=== PATIENT | female | born 1970 | race African-American/Black ===

== ENCOUNTER 2021-05-23 01:59 | Emergency (ER) | payer OTHER ==
[~2021-05-23] VITALS: Ht 167.6 cm; Wt 90.0 kg
[2021-05-23 02:15] VITALS: BP 168/80
== END 2021-05-23 06:30 | disposition home or self-care (01) ==
LOC: EDUNIT# 01:59 → EDBD 01:59 → ER 01:59
DX: R45.1 Restlessness and agitation (principal); R45.6 Violent behavior
CPT/HCPCS: 99283

== ENCOUNTER 2021-05-23 01:59 | Emergency (ER) | payer OTHER | END 2021-05-23 10:22 | disposition left against medical advice (07) | LOC: ER 01:59 | DX: Z53.21 Procedure and treatment not carried out due to patient leaving prior to being seen by health care provider (principal) ==

== ENCOUNTER 2021-12-14 09:02 | Emergency (ER) | payer MEDICAID, OTHER ==
[~2021-12-14] VITALS: Ht 160 cm; Wt 80.0 kg
[2021-12-14 09:03] VITALS: BP 168/98
[2021-12-14] MEDS ORDERED: ALBU6.7H3 INH (09:24)
[2021-12-14] MEDS ORDERED: NAPR500T7 MT (09:24)
== END 2021-12-14 09:56 | disposition home or self-care (01) ==
LOC: ER 09:02
DX: M17.9 Osteoarthritis of knee, unspecified (principal); J45.909 Unspecified asthma, uncomplicated; Z88.0 Allergy status to penicillin
CPT/HCPCS: 99283; L1830